=== PATIENT | male | born 1965 | race Caucasian/White ===

== ENCOUNTER 2018-09-15 10:17 | Emergency (ER) | payer OTHER ==
[2018-09-15] MEDS ORDERED: Fentanyl 100 MCG/2 ML VIAL ONE (11:01)
[2018-09-15] MEDS ORDERED: Ketorolac Tromethamine 30 MG/ML VIAL ONE (11:01)
--- NOTE | 2018-09-15 11:26 | ULT ---
ULTRASOUND SCROTUM TESTICLES DOPPLER DUPLEX: 09/15/2018 HISTORY: Scrotal/testicular pain, mostly on the left side, in a 53-year-old male. TECHNIQUE: Valencia-scale evaluation of intrascrotal contents. Color flow Doppler and spectral waveform analysis of the testicles. FINDINGS: Right testicle: 2.8 x 4.0 x 2.4 cm Left testicle: 2.7 x 4.2 x 2.9 cm No solid testicular mass lesion. Blood flow demonstrated in both testicles by Doppler, slightly increased on the left. Right epididymal head: 1.2 x 0.7 x 1.1 cm. Contains a 0.6 x 0.6 x 0.6 cm cyst. Left epididymal head: 1.5 x 0.9 x 1.1 cm. Contains a tiny, 0.2 x 0.2 x 0.3 cm cyst. Bilateral hydroceles, small to moderate sized, left greater than right. Tortuous, dilated blood vessels in bilateral inguinal canals, left greater than right, with changes b efore and after Valsalva. IMPRESSION: 1. Evidence for left epididymitis. 2. Probable left orchitis. 3. Bilateral inguinal varicoceles, left greater than right. 4. Bilateral hydroceles. 5. No evidence of testicular torsion. RUY Alexis POS: CET
[2018-09-15 11:33] LABS: Bacteria/HPF 2+ HPF (None Seen); Bilirubin Negative (Negative); Blood, Urine 1+ (Negative); Clarity Clear (Clear); Glucose, Urine (Dipstick) Normal (Negative); Leukocyte 250 Leu/uL (Negative); Nitrite 2+ (Negative); Protein, Urine (Dipstick) 20 mg/dL (Neg-Trace); RBC/HPF 0-3 HPF (0-3); Squamous Epithelial None Seen HPF (0-3); Urobilinogen Normal mg/dL (Less than 2)
[2018-09-15] MEDS ORDERED: Morphine 4 MG/ML VIAL ONE (11:53)
[2018-09-15] MEDS ORDERED: cefTRIAXone\\ROCEPHIN 1 GM VIAL ONE (11:53)
== END 2018-09-16 00:20 | disposition home or self-care (01) ==
LOC: ERS 10:17
DX: N45.1 Epididymitis (principal); F17.210 Nicotine dependence, cigarettes, uncomplicated
CPT/HCPCS: 76870; 81003; 81015; 87077; 87086; 87186; 93976; 96361; 96365; 96375; J0696; J1885; J2270; J3010

== ENCOUNTER 2018-09-16 19:29 | Emergency (ER) | payer OTHER | END 2018-09-16 20:11 | disposition home or self-care (01) | LOC: ERS 19:29 | DX: N45.1 Epididymitis (principal); F17.210 Nicotine dependence, cigarettes, uncomplicated | CPT/HCPCS: 99283 ==

== ENCOUNTER 2018-11-25 10:42 | Outpatient (CLI) | payer OTHER ==
--- NOTE | 2018-11-25 12:21 | ULT ---
TESTICULAR ULTRASOUND: Date: 11/25/18 COMPARISON: 09/15/18. HISTORY: History of left orchitis, status post treatment. TECHNIQUE: Multiplanar Valencia scale and color Doppler images were obtained in a bilateral testicular/scrotal ultra sound. Spectral analysis of the Doppler waveforms performed. FINDINGS: The right testicle is normal in echogenicity without focal lesions and demonstrates normal internal f low. The left testicle is heterogeneous in appearance with areas of cystic change within the testicle. Thi s may represent sequelae from prior infectious process. Normal flow is seen within the left testicle. There is a small right epididymal cyst measuring 7.0 mm in greatest dimension. The left epididymis is unremarkable. There is a small right-sided hydrocele. IMPRESSION: 1. Abnormal appearance of the left testicle may represent sequelae from prior infectious process. 2. Right epididymal cyst and small right hydrocele. POS: [facility]
== END 2018-11-25 10:43 | disposition home or self-care (01) ==
LOC: BICULT 10:42
PROVIDERS: ATTEND Urology
DX: N45.3 Epididymo-orchitis (principal); N43.3 Hydrocele, unspecified; L72.0 Epidermal cyst
CPT/HCPCS: 76870; 93976

== ENCOUNTER 2019-02-08 10:49 | Outpatient (CLI) | payer OTHER ==
--- NOTE | 2019-02-08 11:53 | ULT ---
SCROTAL ULTRASOUND: 02/08/2019 HISTORY: Swelling. Epididymitis/orchitis. COMPARISON: 11/25/2018 09/15/2018 TECHNIQUE: Multiplanar godwin-scale sonographic imaging of the scrotal contents obtained with Doppler interrogatio n of the bilateral testicles, including color-flow and spectral analysis. FINDINGS: There is a small right sided hydrocele. The right testicle appears normal in echogenicity and size, m easuring 4.3 x 2.3 cm. There is a 5 mm cyst within the right epididymal head. The right testicle demo nstrates normal blood flow. The left testicle is abnormally heterogeneous in echotexture and relatively small when compared to th e contralateral side. The left testicle measures 2.8 x 1.5 x 1.2 cm, demonstrating no internal blood flow. Peripheral calcification is noted. IMPRESSION: The left testicle is markedly heterogeneous, has shrunken since 09/15/2018 and now demonstrates an ar ea of peripheral coarse calcification and no internal blood flow, consistent with a nonviable left te sticle. Dr. Barriga made aware at 11:40 a.m. on 02/08/2019. CODE CR POS: OFF
== END 2019-02-08 10:50 | disposition home or self-care (01) ==
LOC: BICULT 10:49
PROVIDERS: ATTEND Urology
DX: N45.3 Epididymo-orchitis (principal); N50.89 Other specified disorders of the male genital organs
CPT/HCPCS: 76870; 93976

== ENCOUNTER 2019-02-08 15:56 | Outpatient (CLI) | payer OTHER ==
[2019-02-08 17:16] LABS: Hemoglobin 14.7 g/dL (14.0-18.0); Mean Corpuscular HGB CONC 33.1 g/dL (32.0-36.0); Mean Corpuscular Hemoglobin 33.2 pg (27.0-31.0); Mean Platelet Volume 7.3 fL (7.4-10.4); Platelet Count 255 thou/uL (130-400); RBC Distribution Width 11.4 % (11.5-14.5); Red Blood Cell (RBC) Count 4.43 mill/uL (4.70-6.10); White Blood Cell (WBC) Count 10.1 thou/uL (4.8-10.8)
[2019-02-08 17:19] LABS: Prothrombin Time 12.9 SEC (12.0-14.7)
[2019-02-08 17:23] LABS: Bacteria/HPF None Seen HPF (None Seen); Bilirubin Negative (Negative); Blood, Urine Trace (Negative); Clarity Clear (Clear); Glucose, Urine (Dipstick) Normal (Negative); Leukocyte Negative Leu/uL (Negative); Mucous/LPF 1+ LPF (<2+); Nitrite Negative (Negative); Protein, Urine (Dipstick) 10 mg/dL (Neg-Trace); RBC/HPF 0-3 HPF (0-3); Squamous Epithelial 0-3 HPF (0-3); Urobilinogen Normal mg/dL (Less than 2)
[2019-02-08 17:43] LABS: Anion Gap 13 mmol/L (10-20); BUN (Urea Nitrogen) 13 mg/dL (8.4-25.7); Calc. Creatinine Clearance 0 mL/min (70-130); Calcium 9.3 mg/dL (7.8-10.44); Carbon Dioxide 28 mmol/L (22-29); Chloride 106 mmol/L (98-107); Estimated GFR-MDRD 76; Glucose 80 mg/dL (70-105); Potassium 4.9 mmol/L (3.5-5.1); Sodium 142 mmol/L (136-145)
== END 2019-02-08 15:57 | disposition home or self-care (01) ==
LOC: LABBT 15:56
PROVIDERS: ATTEND Urology
DX: Z01.812 Encounter for preprocedural laboratory examination (principal); N45.3 Epididymo-orchitis
CPT/HCPCS: 76870; 80048; 81001; 85027; 85610; 85730; 87086; 93005; 93010; 93976

== ENCOUNTER 2019-02-10 09:57 | Day surgery (SDC) | payer OTHER ==
[2019-02-08 16:10] VITALS: BMI 28.4
[2019-02-10] MEDS ORDERED: Piperacillin/Tazobactam 3.375 GM VIAL ONE (11:59)
[2019-02-10] MEDS ORDERED: Sodium Chloride 0.9% 100 ML ONE (11:59)
[2019-02-10] MEDS ORDERED: Fentanyl 100 MCG/2 ML VIAL ONE ×3 (12:01→14:37)
[2019-02-10] MEDS ORDERED: ePHEDrine/0.9% NaCl/PF SYRINGE 50 mg/10 ml ONE (12:10)
[2019-02-10] MEDS ORDERED: Lidocaine 1% PF 5 ML VIAL ONE (12:10)
[2019-02-10] MEDS ORDERED: Ondansetron PF 4 MG/2 ML Vial ONE (12:10)
[2019-02-10] MEDS ORDERED: PROPOFOL 200 MG/20 ML VIAL ONE (12:10)
[2019-02-10] MEDS ORDERED: Dexamethasone 20 MG/5 ML VIAL ONE (12:10)
[2019-02-10] MEDS ORDERED: Bupivacaine 0.25% HCL 30 ML VIAL ONE (12:15)
[2019-02-10] MEDS ORDERED: Neomycin-Polymyxin 1 ML AMP ONE (13:36)
[2019-02-10] MEDS ORDERED: Bacitracin Zinc Ointment 30 gm TUBE ONE (13:54)
--- NOTE | 2019-02-10 20:28 | OP ---
DATE OF PROCEDURE: 02/10/2019 PREOPERATIVE DIAGNOSES: 1. A 54-year-old male with history of left epididymo-orchitis, urine culture positive for Klebsiella, pansensitive, treated. 2. Progressive left epididymo-orchitis, subsequent staging ultrasound demonstrating non viable left testicle due to no significant vascularity. POSTOPERATIVE DIAGNOSES: 1. A 54-year-old male with history of left epididymo-orchitis, urine culture positive for Klebsiella, pansensitive, treated. 2. Progressive left epididymo-orchitis, subsequent staging ultrasound demonstrating non viable left testicle due to no significant vascularity. PROCEDURE PERFORMED: Left simple orchiectomy. ANESTHESIA: General. ESTIMATED BLOOD LOSS: Minimal. IV FLUIDS: 1 L. INTRAOPERATIVE FINDINGS: Densely adherent left testicle consistent with prior severe left epididymo-orchitis. SPECIMENS: Left testicle and cord structures. DRAINS: Quarter-inch Kipling to the left hemiscrotum. COMPLICATIONS: None apparent. INDICATIONS FOR THE PROCEDURE AND HISTORY: Mr. Sarmiento is a 54-year-old male, who initially presented to the emergency room, diagnosed with epididymo-orchitis. He was cultured, treated with appropriate antibiotic regimen for a prolonged period of time. We have been monitoring his scrotal ultrasound for convalescence. However with subsequent testicular ultrasound, this demonstrated that the left testicle was nonviable, shrunken in size, and demonstrates area of calcification with no flow consistent with nonviable left testes. He has been counseled regarding options of left simple orchiectomy versus clinical observation. Risk of infection, bleeding, abscess formation, chronic pain, has been discussed with him in detail as well as surgical risks and complications including bleeding, pain, infection, possible secondary procedure due to hematoma or scrotal abscess. Questions encouraged and answered, and he desired to proceed with left simple orchiectomy. DESCRIPTION OF PROCEDURE: After an informed consent was signed, the patient was taken to the operating room, placed in supine position with the genital area prepped and draped in the usual surgical sterile fashion. The genital and the abdomen area were formally prepped and draped and again, the left testicle was hard and somewhat atrophic compared to the right. There was some fixation to the left testicle to the scrotal skin. A mid transverse incision was made in the left scrotum. The dartos fascia was opened to the limits of skin incision. As expected, the left testicle is densely adhered to the scrotal wall. We had to utilize sharp dissection to free the left testicle circumferentially off the dartos fascia, which was densely fused and adherent. We did not breech the tunica albuginea. Once we mobilized the testicle complete, the cord structures were easily dissected to the level of the external ring. The cord was doubly clamped with large hemostats and doubly ligated with 0 silk. We did divide the cord structures in two as well and subsequently obtained further hemostasis with 2-0 silk stick ties in two separate closure. Good hemostasis of the transected cord structure was noted. This was then retracted into the internal ring canal. The hemiscrotum of the incision was inspected and we obtained good hemostasis of any oozing or raw areas. The wound was copiously irrigated with antibiotic irrigation. A 0.25 inch Mor was placed in the left hemiscrotum. The dartos fascia was closed with 3-0 Vicryl in a running fashion. Skin closed with 2-0 chromic in a vertical mattress. The Mor drain was sutured to skin using 3-0 nylon. Bacitracin pressure dressing was applied and he tolerated the procedure well. He was transported to the recovery room in stable condition. He will be discharged with [place] antibiotics based on previous urine culture and will see me this week for a wound check. Job ID: [id number]
== END 2019-02-10 17:40 | disposition home or self-care (01) ==
LOC: SDC 09:57
PROVIDERS: ATTEND Urology
PROC: 0VTB0ZZ Resection of Left Testis, Open Approach (ICD-10-PCS; principal; 2019-02-10)
DX: N45.3 Epididymo-orchitis (principal); I10 Essential (primary) hypertension; E78.00 Pure hypercholesterolemia, unspecified; F17.210 Nicotine dependence, cigarettes, uncomplicated; N40.1 Benign prostatic hyperplasia with lower urinary tract symptoms; R35.1 Nocturia; N30.00 Acute cystitis without hematuria; Z79.899 Other long term (current) drug therapy
CPT/HCPCS: 88305; 93005; 93010; J0131; J1100; J2001; J2405; J2543; J2704; J3010; J3490; S0020

== ENCOUNTER 2019-04-14 06:42 | Outpatient (CLI) | payer OTHER ==
[2019-04-14 10:10] LABS: Bacteria/HPF None Seen HPF (None Seen); Bilirubin Negative (Negative); Blood, Urine Trace (Negative); Clarity Clear (Clear); Glucose, Urine (Dipstick) Normal (Negative); Hemoglobin 15.3 g/dL (14.0-18.0); Leukocyte Negative Leu/uL (Negative); Mean Corpuscular HGB CONC 34.5 g/dL (32.0-36.0); Mean Corpuscular Hemoglobin 34.6 pg (27.0-31.0); Mean Platelet Volume 6.8 fL (7.4-10.4); Nitrite Negative (Negative); Platelet Count 257 thou/uL (130-400); Protein, Urine (Dipstick) Negative (Neg-Trace); RBC Distribution Width 11.1 % (11.5-14.5); RBC/HPF 0-3 HPF (0-3); Red Blood Cell (RBC) Count 4.42 mill/uL (4.70-6.10); Squamous Epithelial None Seen HPF (0-3); Urobilinogen Normal mg/dL (Less than 2); WBC/HPF 0-3 HPF (0-3); White Blood Cell (WBC) Count 9.5 thou/uL (4.8-10.8)
[2019-04-14 10:15] LABS: INR-International Normal Ratio 0.9; Prothrombin Time 12.1 SEC (12.0-14.7)
[2019-04-14 10:27] LABS: Anion Gap 13 mmol/L (10-20); BUN (Urea Nitrogen) 7 mg/dL (8.4-25.7); Calc. Creatinine Clearance 0 mL/min (70-130); Calcium 9.7 mg/dL (7.8-10.44); Carbon Dioxide 25 mmol/L (22-29); Chloride 102 mmol/L (98-107); Estimated GFR-MDRD Greater than 90; Glucose 85 mg/dL (70-105); Potassium 5.4 mmol/L (3.5-5.1); Sodium 135 mmol/L (136-145)
--- NOTE | 2019-04-15 15:54 | EKG ---
Test Reason : Blood Pressure : / mmHG Vent. Rate : 066 BPM Atrial Rate : 066 BPM P-R Int : 184 ms QRS Dur : 080 ms QT Int : 374 ms P-R-T Axes : 058 129 112 degrees QTc Int : 392 ms Normal sinus rhythm Possible Left atrial enlargement Left posterior fascicular block Abnormal ECG Confirmed by KENDRA KHAN ([id number]) on 04/15/2019 3:54:19 PM Referred By: KALE Confirmed By:KENDRA KHAN
== END 2019-04-14 06:43 | disposition home or self-care (01) ==
LOC: LABBT 06:42
PROVIDERS: ATTEND Urology
DX: Z01.818 Encounter for other preprocedural examination (principal); Z12.5 Encounter for screening for malignant neoplasm of prostate; N45.3 Epididymo-orchitis; N30.00 Acute cystitis without hematuria; N40.1 Benign prostatic hyperplasia with lower urinary tract symptoms; R35.0 Frequency of micturition; K59.00 Constipation, unspecified; Z72.0 Tobacco use
CPT/HCPCS: 80048; 81001; 85027; 85610; 85730; 87086; 93005; 93010

== ENCOUNTER 2019-04-26 08:29 | Outpatient (CLI) | payer OTHER ==
--- NOTE | 2019-04-26 09:26 | CT ---
CT OF THE ABDOMEN AND PELVIS WITH AND WITHOUT IV CONTRAST INDICATION: Microhematuria TECHNIQUE: Noncontrast CT of the abdomen and pelvis was performed. Postcontrast images were obtained in the nephrographic phase and delayed phase. Axial and coronal reformatted images were constructed from the raw data. COMPARISON: None FINDINGS: ABDOMEN: Lung bases: No suspicious pulmonary nodules are demonstrated. There is a small sub-4 mm, subpleural p ulmonary nodule within the posterior right lower lobe on image 16 of series 3. Liver: No focal lesion. Gallbladder: Normal appearing. Pancreas: Normal. Adrenal glands: Normal. Spleen: Normal. Kidneys and ureters: There is a 3.2 x 3 cm complex cystic lesion involving the superior pole of the r ight kidney on image 50 of series 3 and image 16 of series 6. This lesion demonstrates thin internally enhancing septations. No definite peripheral or internal enhancing nodular component is de monstrated. There is a small 9 mm cyst involving the inferior pole the right kidney. No focal renal lesion is seen involving the left kidney. Vasculature: There are mild vascular calcifications seen involving the visualized vasculature. Lymph nodes:No lymphadenopathy. Free fluid in abdomen:No free fluid is evident. PELVIS: Small and large bowel: There are scattered colonic diverticula without evidence of active diverticuli tis. Small bowel is of normal caliber. Appendix:Normal Bladder: There is mild diffuse circumferential wall thickening involving the bladder Rectal and perirectal soft tissues:Normal. Reproductive structures: Prostate measures 4.2 cm Free fluid in pelvis: No free fluid is evident. Lymphadenopathy pelvis: No lymphadenopathy is evident. Osseous structures: No acute osseous abnormality. No destructive osteolytic or osteoblastic lesion i s identified. There is scattered degenerative and osteoarthritic changes. Soft tissues:Normal. IMPRESSION: 1. Bosniak type III cyst involving the superior pole of the right kidney. Small Bosniak type I cyst i nvolving inferior pole of the right kidney. 2. Diffuse bladder wall thickening may reflect a component of chronic bladder outlet obstruction. Com ponent of a cystitis is not entirely excluded.
[2019-04-26] MEDS ORDERED: Iopamidol-370 76% 500 ML 1 ML ONE (14:32)
== END 2019-04-26 08:30 | disposition home or self-care (01) ==
LOC: BICCT 08:29
PROVIDERS: ATTEND Urology
DX: N40.1 Benign prostatic hyperplasia with lower urinary tract symptoms (principal); R31.29 Other microscopic hematuria; N28.1 Cyst of kidney, acquired; N32.89 Other specified disorders of bladder
CPT/HCPCS: 74178; Q9967

== ENCOUNTER → 2019-04-28 | Day surgery (SDC) | payer OTHER ==
[2019-04-14 09:31] VITALS: BMI 28.1
[~2019-04-28] MED LIST: Fentanyl 100 MCG/2 ML VIAL ONE; Glycopyrrolate 0.2 MG/ML 5 ML SYRINGE ONE; Lidocaine 1% PF 5 ML VIAL ONE; Oxybutynin 5 MG TAB ONE; PROPOFOL 200 MG/20 ML VIAL ONE; Phenazopyridine HCl 97.5 MG TABLET ONE; Sodium Chloride 0.9% 100 ML ONE; cefTRIAXone\\ROCEPHIN 2 GM VIAL ONE
--- NOTE | 2019-04-28 10:48 | OP ---
DATE OF PROCEDURE: 04/28/2019 PREOPERATIVE DIAGNOSES: A 54-year-old male with history of urinary tract infection, complicated orchitis resulting in orchiectomy. 2. BPH POSTOPERATIVE DIAGNOSES: A 54-year-old male with history of urinary tract infection, complicated orchitis resulting in orchiectomy 2. BPH. PROCEDURES PERFORMED: Cystoscopy, UroLift implant x4. ANESTHESIA: TIVA. COMPLICATIONS: None apparent. DISPOSITION: To recovery room in stable condition. INDICATIONS FOR PROCEDURE AND HISTORY: Mr. Childs is a 54-year-old male, who presented to ut for evaluation of epididymitis. He was treated with appropriate antibiotic therapy. However, due to progressive complicated orchitis, subsequently developed nonviable testes requiring orchiectomy. He has recovered well and desires to proceed with BPH treatment. He desired to proceed with UroLift. We discussed options of continuing medical therapy, which he declined. Indications for surgery as well as options of observation has been discussed. Risks and complications including, but not limited to, bleeding, pain, infection, injury to adjacent organs, possible secondary procedure, chronic pain reviewed with him in detail. All questions answered to his satisfaction and he desired to proceed. DESCRIPTION OF PROCEDURE: After an informed consent was signed, the patient was taken to the operating room, placed in a dorsal lithotomy position with the genital area prepped and draped in the usual surgical sterile fashion. A 21-Gabonese cystoscope was utilized for cystoscopy. On previous cystoscopy, he had evidence of possible early proximal penile bulbar stricture. However, these were not obviously seen on rigid cystoscope, nor warranting urethral stricture dilatation or dilation. Again, noted was bilobar mild hyperplasia, with high median bar. No intravesical median lobe was seen. Diffuse bladder trabeculation was seen consistent with chronic outlet obstruction. The UOs were well away from the bladder neck about 2 to 3 mm. At this time, I transitioned to a UroLift cystoscope, with a visual obturator. This was passed to the level of the bladder. At this time, we implanted the left side first about 1.5 cm proximal to the bladder neck. We subsequently passed an implant on the right side as well. As he does have a component of a median bar, he had a curtain effect. Therefore, we stacked on the left side as well improving the curtain effect. There was room for one more implant on the left side at the mid gland and this was placed uneventfully. Resolution of lateral obstructing lobes was noted. Although, he has a mild curtain effect, bladder neck appeared open and a good anterior channel was noted. An 18-Gabonese Zaragoza catheter was placed to gravity with 30 mL. I will monitor his urine output and no significant hematuria, we will initiate voiding trial. He is to continue his Flomax, Omnicef x5 days, provided Azo p.r.nJens Job ID: [id number] [facility]
== END ==
LOC: SDC 06:47
PROVIDERS: ATTEND Urology
PROC: 0T7D8DZ Dilation of Urethra with Intraluminal Device, Via Natural or Artificial Opening Endoscopic (ICD-10-PCS; principal; 2019-04-28)
DX: N40.1 Benign prostatic hyperplasia with lower urinary tract symptoms (principal); R35.1 Nocturia; N45.3 Epididymo-orchitis; I10 Essential (primary) hypertension; E78.00 Pure hypercholesterolemia, unspecified; F17.210 Nicotine dependence, cigarettes, uncomplicated; Z79.899 Other long term (current) drug therapy
CPT/HCPCS: C1889; J0696; J2001; J2704; J3010; J3490